=== PATIENT | female | born 1960 | race Caucasian/White ===

== ENCOUNTER 2017-12-27 16:43 | Outpatient (REF) | payer MEDICARE, MEDICAID, SELFPAY ==
[2017-12-27 21:00] LABS: Abs Immature Grans 0.01 k/cumm (0.0-0.09); Absolute Basophil Count 0.01 k/cumm (0.0-0.2); Absolute Eosinophil Count 0.13 k/cumm (0.0-0.7); Absolute Lymphocyte Count 3.13 k/cumm (1.2-3.4); Absolute Monocyte Count 0.38 k/cumm (0.11-0.7); Absolute Neutrophil Count 3.72 k/cumm (1.2-6.7); Basophils % 0.1; Eosinophils % 1.8; HCT 40.4 % (36.0-46.0); HGB 13.2 g/dL (12.0-15.5); Immature Grans % 0.1; Lymphocytes % 42.4; Mean Corp. HGB Concentration 32.7 g/dL (32.0-36.0); Mean Corpuscular Hemoglobin 29.2 pg (27.0-33.0); Mean Corpuscular Volume 89.4 fL (80-95); Mean Platelet Volume 11.3 fL (8.0-11.0); Monocytes % 5.1; Neutrophils % 50.5; Platelet Count 142 x1000/uL (130-400); RBC 4.52 m/cumm (4.00-5.20); RBC Distribution Width 15.7 % (11.7-14.6); White Blood Cell Count 7.38 k/cumm (4.4-10.8)
[2017-12-27 21:10] LABS: ALT 35 U/L (12-78); AST 35 U/L (15-37); Albumin 4.1 g/dL (3.4-5.0); Alkaline Phosphatase 123 U/L (46-116); Anion Gap 8.4 mmol/L (3-11); BUN 9 mg/dL (7-18); Bilirubin, Total 0.6 mg/dL (0.2-1.0); CO2 27.6 mmol/L (21.0-32.0); CREATININE 0.86 mg/dL (0.55-1.02); Calcium 9.3 mg/dL (8.5-10.1); Chloride 103 mmol/L (98-107); Glucose 90 mg/dL (70-100); Potassium 4.4 mmol/L (3.5-5.1); Sodium 139 mmol/L (136-145); Total Protein 8.2 g/dL (6.4-8.2)
[2017-12-27 21:12] LABS: Hemoglobin A1C 6.5 % (4.5-6.2)
== END 2017-12-27 16:44 ==
LOC: NCHCN 16:43
PROVIDERS: Visit Provider Family Medicine
DX: R73.9 Hyperglycemia, unspecified (principal); R60.9 Edema, unspecified
CPT/HCPCS: 80053; 83036; 85025

== ENCOUNTER 2018-08-26 14:52 | Outpatient (REF) | payer MEDICARE, MEDICAID, SELFPAY ==
[2018-08-26 21:29] LABS: ALT 37 U/L (12-78); AST 34 U/L (15-37); Albumin 3.7 g/dL (3.4-5.0); Alkaline Phosphatase 108 U/L (46-116); Anion Gap 8.7 mmol/L (3-11); BUN 12 mg/dL (7-18); Bilirubin, Total 0.5 mg/dL (0.2-1.0); CO2 28.3 mmol/L (21.0-32.0); CREATININE 0.72 mg/dL (0.55-1.02); Calcium 9.1 mg/dL (8.5-10.1); Chloride 105 mmol/L (98-107); Cholesterol 137 mg/dL (50-200); Glucose 114 mg/dL (70-100); HDL Cholesterol 50 mg/dL (40-60); LDL CHOLESTEROL 61 mg/dL (<100); Potassium 4.7 mmol/L (3.5-5.1); Sodium 142 mmol/L (136-145); Total Protein 7.6 g/dL (6.4-8.2); Triglyceride 136 mg/dL (30-150)
== END 2018-08-26 15:12 ==
LOC: NCHCN 14:52
PROVIDERS: Visit Provider Family Medicine
DX: E11.9 Type 2 diabetes mellitus without complications (principal)
CPT/HCPCS: 80053; 80061; 83721

== ENCOUNTER 2019-02-14 08:29 | Outpatient (REF) | payer MEDICARE, MEDICAID, SELFPAY ==
[2019-02-14 22:18] LABS: HCT 40.5 % (36.0-46.0); Mean Corp. HGB Concentration 32.1 g/dL (32.0-36.0); Mean Corpuscular Hemoglobin 28.8 pg (27.0-33.0); Mean Corpuscular Volume 89.6 fL (80-95); Mean Platelet Volume 11.8 fL (8.0-11.0); Platelet Count 105 x1000/uL (130-400); RBC 4.52 m/cumm (4.00-5.20); RBC Distribution Width 15.1 % (11.7-14.6); White Blood Cell Count 4.75 k/cumm (4.4-10.8)
[2019-02-14 22:55] LABS: Iron 62 ug/dL (50-175); Total Iron Binding Capacity 339 ug/dL (250-450); Transferrin Sat 18 % (15-50)
[2019-02-14 23:09] LABS: Ferritin 57 ng/mL (8-388)
[2019-02-16 11:06] LABS: Hepatitis C Ab w Rflx HCV PCR Negative (NEGAT)
[2019-02-16 11:18] LABS: HBs Antibody, Quant <3.1 mIU/mL; Hep A Total Ab w Rflx IgM Negative (NEGAT); Hepatitis B Surface Ab Negative; Hepatitis B Surface Ag Negative (NEGAT)
[2019-02-16 13:18] LABS: ANA Interpretation Negative (NEGAT)
== END 2019-02-14 08:49 ==
LOC: NCHCN 08:29
PROVIDERS: Visit Provider Family Medicine
DX: K76.0 Fatty (change of) liver, not elsewhere classified (principal)
CPT/HCPCS: 85027; 86706; 86709; 86803; 87340; 82728; 83540; 83550; 86038

== ENCOUNTER 2019-04-21 09:28 | Outpatient (REF) | payer MEDICARE, MEDICAID, SELFPAY ==
[2019-04-21 21:14] LABS: COMMENT (LAB VIEW ONLY) 109.67 mg/dL; Microalb ug/mg Crea 16.7 ug/mg Cr
== END 2019-04-21 09:48 ==
LOC: NCHCN 09:28
PROVIDERS: Visit Provider Family Medicine
DX: E11.65 Type 2 diabetes mellitus with hyperglycemia (principal)
CPT/HCPCS: 82043; 82570

== ENCOUNTER 2022-08-24 13:05 | Outpatient (REF) | payer MEDICARE, MEDICAID, SELFPAY ==
[2022-08-24 15:46] LABS: COMMENT (LAB VIEW ONLY) 212.36 mg/dL; Microalb ug/mg Crea 19.5 ug/mg Cr
== END 2022-08-24 13:06 | disposition home or self-care (01) ==
LOC: NCHCN 13:05
PROVIDERS: Visit Provider Nurse Practitioner Family
DX: E11.9 Type 2 diabetes mellitus without complications (principal); I10 Essential (primary) hypertension; K74.60 Unspecified cirrhosis of liver; R60.0 Localized edema
CPT/HCPCS: 82043; 82570